=== PATIENT | female | born 1975 | race Caucasian/White ===

== ENCOUNTER 2017-12-23 12:41 | Emergency (ER) | payer BC ==
--- NOTE | 2017-12-23 14:06 | RAD REPORT ---
EXAM DESCRIPTION: RAD - Foot Right 3 View - 12/23/2017 1:52 pm CLINICAL HISTORY: Blunt force trauma to the foot, foot pain, diabetes history COMPARISON: None. FINDINGS: No fracture, dislocation or periosteal reaction. No acute or destructive bone process. Min imal degenerative change to the toes noted. Patient has a moderate size plantar spur. No air or foreign body in the soft tissues. IMPRESSION: No fracture or acute bone finding.
--- NOTE | 2017-12-23 14:09 | EDPHYS ---
Physician Documentation [facility] Name: Ary Bahena Age: 42 yrs Sex: Female : 1975 Arrival Date: 12/23/2017 Time: 12:44 Bed 10 Private MD: ED Physician Jesus Mchugh HPI: 12/23 14:09 This 42 yrs old Female presents to ER via Ambulatory with complaints of Toe kb Injury. 14:09 The patient presents with a contusion, pain, that is acute. The complaints affect the kb right foot. Context: The problem was sustained at home, resulted from sea salt dropped on it, the patient can fully bear weight, the patient is able to ambulate. Onset: The symptoms/episode began/occurred yesterday. Modifying factors: The symptoms are alleviated by nothing, the symptoms are aggravated by nothing. Associated signs and symptoms: The patient has no apparent associated signs or symptoms. Severity of symptoms: At their worst the symptoms were mild, in the emergency department the symptoms are unchanged. The patient has not experienced similar symptoms in the past. The patient has not recently seen a physician. 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 - Social history:: Smoking status: Patient/guardian denies using tobacco. - Ebola Screening: : No symptoms or risks identified at this time. ROS: 14:11 Constitutional: Negative for fever, chills, and weight loss, Cardiovascular: Negative kb for chest pain, palpitations, and edema, Respiratory: Negative for shortness of breath, cough, wheezing, and pleuritic chest pain, Abdomen/GI: Negative for abdominal pain, nausea, vomiting, diarrhea, and constipation, Neuro: Negative for headache, weakness, numbness, tingling, and seizure. 14:11 MS/extremity: Positive for injury or acute deformity, contusion, ecchymosis, pain, of the plantar aspect of right third toe and right third toe. Exam: 14:14 Constitutional: This is a well developed, well nourished patient who is awake, alert, kb and in no acute distress. Head/Face: Normocephalic, atraumatic. Chest/axilla: Normal chest wall appearance and motion. Nontender with no deformity. No lesions are appreciated. Cardiovascular: Regular rate and rhythm with a normal S1 and S2. No gallops, murmurs, or rubs. Normal PMI, no JVD. No pulse deficits. Respiratory: Lungs have equal breath sounds bilaterally, clear to auscultation and percussion. No rales, rhonchi or wheezes noted. No increased work of breathing, no retractions or nasal flaring. Abdomen/GI: Soft, non-tender, with normal bowel sounds. No distension or tympany. No guarding or rebound. No evidence of tenderness throughout. Neuro: Awake and alert, GCS 15, oriented to person, place, time, and situation. Cranial nerves II-XII grossly intact. Motor strength 5/5 in all extremities. Sensory grossly intact. Cerebellar exam normal. Normal gait. 14:14 Musculoskeletal/extremity: Extremities: grossly normal except: noted in the right third toe: contusion, ecchymosis, pain, tenderness, ROM: no acute changes, Circulation is intact in all extremities. Sensation intact. Weight bearing: able to fully bear weight. Vital Signs: 12:49 BP 135 / 82; Pulse 103; Resp 18; Temp 97.9; Pulse Ox 99% on R/A; la1 MDM: 12:50 Patient medically screened. kb 14:07 Data reviewed: vital signs, nurses notes. Data interpreted: Pulse oximetry: on room air kb is 99 %. Interpretation: normal. Counseling: I had a detailed discussion with the patient and/or guardian regarding: the historical points, exam findings, and any diagnostic results supporting the discharge/admit diagnosis, radiology results, the need for outpatient follow up, a orthopedic surgeon, to return to the emergency department if symptoms worsen or persist or if there are any questions or concerns that arise at home. 12/23 12:50 Order name: Foot Right 3 View XRAY; Complete Time: 14:07 kb Administered Medications: No medications were administered Disposition: 14:45 Co-signature as Attending Physician, Jesus Mchugh MD I agree with the assessment and andi plan of care. Disposition: 12/23/17 14:09 Discharged to Home. Impression: Contusion of right lesser toe(s) without damage to nail. - Condition is Stable. - Discharge Instructions: Foot Contusion, [id number]. - Medication Reconciliation Form, Thank You Letter, Antibiotic Education, Prescription Opioid Use form. - Follow up: Private Physician; When: 2 - 3 days; Reason: Recheck today's complaints, Continuance of care, Re-evaluation by your physician. Follow up: Emergency Department; When: As needed; Reason: Worsening of condition. Signatures: Dispatcher [employer] EDMS Paul Harmony, TRAFFIC WORKFORCE REPRESENTATIVE-C JIGNA-Jesus Feldman MD MD cha Attema, Lee RN RN la1 Corrections: (The following items were deleted from the chart) 14:11 14:09 12/23/2017 14:09 Discharged to Home. Impression: Contusion of left lesser toe(s) la1 without damage to nail. Condition is Stable. Forms are Medication Reconciliation Form, Thank You Letter, Antibiotic Education, Prescription Opioid Use. Follow up: Private Physician; When: 2 - 3 days; Reason: Recheck today's complaints, Continuance of care, Re-evaluation by your physician. Follow up: Emergency Department; When: As needed; Reason: Worsening of condition. kb 14:13 14:11 12/23/2017 14:09 Discharged to Home. Impression: Contusion of left lesser toe(s) kb without damage to nail. Condition is Stable. Discharge Instructions: Foot Contusion, [id number]. Forms are Medication Reconciliation Form, Thank You Letter, Antibiotic Education, Prescription Opioid Use. Follow up: Private Physician; When: 2 - 3 days; Reason: Recheck today's complaints, Continuance of care, Re-evaluation by your physician. Follow up: Emergency Department; When: As needed; Reason: Worsening of condition. la1 14:14 14:09 The complaints affect the left foot, kb kb 14:14 14:11 MS/extremity: Positive for injury or acute deformity, contusion, ecchymosis, kb pain, of the plantar aspect of left third toe and left third toe, kb 14:15 14:13 12/23/2017 14:09 Discharged to Home. Impression: Contusion of right lesser toe(s) kb without damage to nail. Condition is Stable. Discharge Instructions: Foot Contusion, [id number]. Forms are Medication Reconciliation Form, Thank You Letter, Antibiotic Education, Prescription Opioid Use. Follow up: Private Physician; When: 2 - 3 days; Reason: Recheck today's complaints, Continuance of care, Re-evaluation by your physician. Follow up: Emergency Department; When: As needed; Reason: Worsening of condition. kb
--- NOTE | 2017-12-23 14:09 | ER ---
Nurse's Notes [facility] Name: Ary Bahena Age: 42 yrs Sex: Female : 1975 Arrival Date: 12/23/2017 Time: 12:44 Bed 10 Private MD: Diagnosis: Contusion of right lesser toe(s) without damage to nail Presentation: 12/23 12:48 Presenting complaint: Patient states: I dropped the sea salt on my toe on my right foot la1 and since I am diabetic I wanted to get it checked out. Transition of care: patient was not received from another setting of care. Onset of symptoms was December 23, 2017. Risk Assessment: Do you want to hurt yourself or someone else? Patient reports no desire to harm self or others. Initial Sepsis Screen: Does the patient meet any 2 criteria? No. Patient's initial sepsis screen is negative. Does the patient have a suspected source of infection? No. Patient's initial sepsis screen is negative. Care prior to arrival: None. 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 - Social history:: Smoking status: Patient/guardian denies using tobacco. - Ebola Screening: : No symptoms or risks identified at this time. Screenin:11 Abuse screen: Denies injuries from another. Nutritional screening: No deficits noted. la1 Tuberculosis screening: No symptoms or risk factors identified. Fall Risk None identified. Assessment: 14:10 General: Appears in no apparent distress. Behavior is calm, cooperative. Pain: Denies la1 pain. Neuro: Level of Consciousness is awake, alert, obeys commands, Oriented to person, place, time, situation. Cardiovascular: Capillary refill < 3 seconds Patient's skin is warm and dry. Respiratory: Airway is patent Respiratory effort is even, unlabored. GI: No signs and/or symptoms were reported involving the gastrointestinal system. : No signs and/or symptoms were reported regarding the genitourinary system. Vital Signs: 12:49 BP 135 / 82; Pulse 103; Resp 18; Temp 97.9; Pulse Ox 99% on R/A; la1 ED Course: 12:44 Patient arrived in ED. tw3 12:49 Triage completed. la1 12:49 Harmony Miller FNP-C is [facility]. kb 12:49 Jesus Mchugh MD is Attending Physician. kb 12:49 Arm band placed on left wrist. la1 12:59 Michaela Smith, RN is Primary Nurse. iw 13:51 X-ray completed. Portable x-ray completed in exam room. Patient tolerated procedure jb2 well. 13:52 Foot Right 3 View XRAY In Process Unspecified. EDMS 14:11 Call light in reach. Side rails up X 1. la1 14:11 No provider procedures requiring assistance completed. Patient did not have IV access la1 during this emergency room visit. Administered Medications: No medications were administered Outcome: 14:09 Discharge ordered by . kb 14:11 Discharged to home ambulatory. la1 14:11 Condition: stable 14:11 Discharge instructions given to patient, Instructed on discharge instructions, follow up and referral plans. medication usage, Demonstrated understanding of instructions, follow-up care, medications. 14:11 Patient left the ED. la1 14:15 Patient left the ED. kb Signatures: Dispatcher [employer] EDCT Harmony Miller FNP-C FNP-Marek Naranjo jb2 Michaela Smith, RN EL iw Luiz Partida RN RN la1 Nina Yañez tw3
== END 2017-12-23 14:15 | disposition home or self-care (01) ==
LOC: ER 12:41
DX: S90.121A Contusion of right lesser toe(s) without damage to nail, initial encounter (principal); W20.8XXA Other cause of strike by thrown, projected or falling object, initial encounter; Y93.89 Activity, other specified; Y92.9 Unspecified place or not applicable; Z88.0 Allergy status to penicillin
CPT/HCPCS: 99283

== ENCOUNTER 2018-07-27 09:02 | Observation (INO) | payer BC ==
--- OUTSIDE RECORDS SUMMARY | 2018-07-27 09:08 | XMS REPORT ---
:1975 [facility] [address] [place] [address] Dr. Baldwin [address] [place] [id number] Care Team Providers Name Role Phone Unavailable Unavailable Unavailable Problems This patient has no known problems. Allergies, Adverse Reactions, Alerts This patient has no known allergies or adverse reactions. Medications This patient has no known medications.
[2018-07-27 09:23] LABS: Absolute Lymphocytes (CBC) 2.1 K/uL (0.7-4.9); Absolute Monocytes 0.7 K/uL (0.1-1.3); Absolute Neutrophil 5.2 K/uL (1.8-8.0); Basophils % 0.7 % (0-1.3); Lymphocytes % 25.7 % (15.3-44.8); MPV 10.9 fL (7.6-11.3); Monocytes % 9.1 % (3.3-12.3); RBC Red Blood Cell Count 4.23 M/uL (3.86-4.86)
[2018-07-27] MEDS ORDERED: TETANUS & DIPHTHERIA TOX,ADULT 0.5 ML VIAL ONE ×2 (09:25→09:31)
[2018-07-27] MEDS ORDERED: LIDOCAINE 1% MPF 5 ML VIAL ONE ×2 (09:25→09:31)
[2018-07-27] MEDS ORDERED: CEFAZOLIN/SWI 1gm 0 GM/0 ML SYR ONE (09:25)
[2018-07-27] MEDS ORDERED: CEFAZOLIN/SWI 1gm 1 GM/10 ML SYR ONE ×2 (09:31→14:25)
[2018-07-27 09:38] LABS: Potassium 4.2 mmol/L (3.5-5.1)
--- NOTE | 2018-07-27 09:46 | RAD REPORT ---
EXAM DESCRIPTION: RAD - Hand Right 2 View - 07/27/2018 9:27 am CLINICAL HISTORY: partial amputation COMPARISON: No comparisons FINDINGS: Comminuted fracture, likely open with a large soft tissue defect, is seen involving the di stal phalanx of the third digit.
--- NOTE | 2018-07-27 10:08 | ER ---
Nurse's Notes [facility] Name: Ary Bahena Age: 42 yrs Sex: Female : 1975 Arrival Date: 07/27/2018 Time: 09:02 Bed 8 Private MD: Diagnosis: open fracture displaced distal phalanx right third finger Presentation: 07/27 09:07 Presenting complaint: Patient states: my finger got slammed in a loading cart at work, tw2 i work at [employer], its my RIGHT middle finger. Transition of care: patient was not received from another setting of care. Onset of symptoms was July 27, 2018. Risk Assessment: Do you want to hurt yourself or someone else? Patient reports no desire to harm self or others. Initial Sepsis Screen: Does the patient meet any 2 criteria? No. Patient's initial sepsis screen is negative. Does the patient have a suspected source of infection? No. Patient's initial sepsis screen is negative. Care prior to arrival: None. 09:07 Method Of Arrival: Ambulatory tw2 09:07 Acuity: MATTHEW 2 tw2 09:07 Mechanism of Injury: Crush injury from being trapped between 2 industrial carts at tw2 work. Trauma event details: Injury occurred in the county of. Triage Assessment: 09:08 General: Appears in no apparent distress. well groomed, Behavior is cooperative, tw2 appropriate for age. Pain: Complains of pain in palmar aspect of distal phalanx of right middle finger. 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 Injury Description: Amputation was sustained less than 30 minutes ago. 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/08/2018 tw2 Trauma Activation: Alert Physician: ED Physician; Name: ; Notified At: ; Arrived At: Physician: General Surgeon; Name: ; Notified At: ; Arrived At: Physician: Radiology; Name: ; Notified At: ; Arrived At: Physician: Respiratory; Name: ; Notified At: ; Arrived At: Physician: Lab; Name: ; Notified At: ; Arrived At: Historical: - Allergies: 09:46 PENICILLINS; tw2 - Home Meds: 09:46 gabapentin 300 mg oral cap 1 cap am \T\ pm [Active]; Novolin 70/30 [place] Sub-Q twice a tw2 day [Active]; trazodone 100 mg oral tab 1 tab nightly [Active]; lisinopril 20 mg Oral tab 1 tab once daily [Active]; aspirin 81 mg Oral chew 1 tab once daily [Active]; naproxen 250 mg Oral tab 1 tab every 6 hours [Active]; metoprolol tartrate 25 mg Oral tab 1 tab once daily [Active]; Multiple Vitamins oral tab [Active]; Vitamin D D3 Oral 50 mcg daily [Active]; atorvastatin 20 mg oral tab 1 tab once daily [Active]; loratadine 10 mg oral tab 1 tab once daily [Active]; - PMHx: 09:46 Diabetes - IDDM; Heart Murmur; PERIPHERAL NEUROPATHY; tw2 - PSHx: 10:05 Tubal ligation; tw2 - Immunization history:: Adult Immunizations. - Social history:: Smoking status: . - Immunization history: Last tetanus immunization: unknown. - Ebola Screening: : Patient denies travel to an Ebola-affected area in the 21 days before illness onset. Screenin:42 Abuse screen: Denies threats or abuse. Nutritional screening: No deficits noted. tw2 Tuberculosis screening: No symptoms or risk factors identified. Fall Risk None identified. Primary Survey: 09:07 Uncontrolled hemorrhage is observed, assessment has been re-ordered to <C> ABC. A: The tw2 patient is alert. Airway: patent. Breathing/Chest: Respiratory pattern: regular, Respiratory effort: spontaneous, unlabored, Breath sounds: clear, bilaterally. Circulation: Skin color: pink, Skin temperature: warm, dry. Disability Alert. Exposure/Environment: There is evidence of uncontrolled external hemorrhage. Provider notified immediately. Methods to control bleeding applied. Obvious injury(ies) are noted at this time: partial amputation noted to distal tip of LEFT middle finger, gauze applied, Provider LUCILLE Gastelum at bedside at this time. 10:02 Reassessment Airway Airway Breathing/Chest Respiratory pattern Regular Respiratory tw2 effort Spontaneous Unlabored Chest inspection Symmetrical Circulation Heart tones Present Disability Alert. Secondary Survey: 09:07 HEENT: No deficits noted. HEENT: Eyes: Other pt wears glasses. Gastrointestinal: No tw2 deficits noted. : No deficits noted. Musculoskeletal: No signs and/or symptoms reported regarding the musculoskeletal system. Injury Description: see trauma charting. Assessment: 09:07 General: Appears in no apparent distress. Behavior is cooperative, appropriate for age. tw2 Pain: Complains of pain in palmar aspect of distal phalanx of right middle finger. Neuro: Level of Consciousness is awake, alert, obeys commands, Oriented to person, place, time, situation. Cardiovascular: Heart tones S1 S2 Patient's skin is warm and dry. Respiratory: Airway is patent Respiratory effort is even, unlabored, Respiratory pattern is regular, symmetrical, Breath sounds are clear bilaterally. GI: No signs and/or symptoms were reported involving the gastrointestinal system. : No signs and/or symptoms were reported regarding the genitourinary system. EENT: No signs and/or symptoms were reported regarding the EENT system. Derm: No signs and/or symptoms reported regarding the dermatologic system. Musculoskeletal: see trauma charting. Injury Description: see trauma charting. 10:00 Reassessment: Patient appears in no apparent distress at this time. No changes from tw2 previously documented assessment. Patient and/or family updated on plan of care and expected duration. Pain level reassessed. Patient is alert, oriented x 3, equal unlabored respirations, skin warm/dry/pink. 10:49 Reassessment: Patient appears in no apparent distress at this time. No changes from tw2 previously documented assessment. Patient and/or family updated on plan of care and expected duration. Pain level reassessed. Patient is alert, oriented x 3, equal unlabored respirations, skin warm/dry/pink. Vital Signs: 09:07 BP 150 / 78; Pulse 99; Resp 18; Temp 98.2(TE); Pulse Ox 99% on R/A; Weight 69.4 kg (R); tw2 Height 5 ft. 3 in. (160.02 cm); Pain 0/10; 09:59 BP 152 / 78; Pulse 84; Resp 17; Pulse Ox 100% on R/A; tw2 10:48 BP 143 / 79; Pulse 80; Resp 17; Pulse Ox 100% on R/A; tw2 09:07 Body Mass Index 27.10 (69.40 kg, 160.02 cm) tw2 [place] Coma Score: 09:07 Eye Response: spontaneous(4). Verbal Response: oriented(5). Motor Response: obeys tw2 commands(6). Total: 15. Trauma Score (Adult): 09:07 Eye Response: spontaneous(1); Verbal Response: oriented(1); Motor Response: obeys tw2 commands(2); Systolic BP: > 89 mm Hg(4); Respiratory Rate: 10 to 29 per min(4); [place] Score: 15; Trauma Score: 12 10:05 Eye Response: spontaneous(1); Verbal Response: oriented(1); Motor Response: obeys hb commands(2); Systolic BP: > 89 mm Hg(4); Respiratory Rate: 10 to 29 per min(4); [place] Score: 15; Trauma Score: 12 ED Course: 09:02 Patient arrived in ED. as 09:05 Nirav Domínguez PA is PHCP. jr8 09:05 Cj Curiel MD is Attending Physician. jr8 09:07 Bed in low position. Call light in reach. lunchroom monitor on. Pulse ox on. NIBP on. tw2 09:07 Patient maintains SpO2 saturation greater than 95% on room air. tw2 09:07 Thermoregulation: warm blanket given to patient. tw2 09:13 Yana Montano, EL is Primary Nurse. tw2 09:15 Triage completed. tw2 09:16 Arm band placed on. tw2 09:22 X-ray completed. Portable x-ray completed in exam room. Patient tolerated procedure sw well. 09:24 Hand Right 2 View In Process Unspecified. EDMS 09:25 Inserted saline lock: 20 gauge in left antecubital area, using aseptic technique. Blood tw2 collected. 10:06 Prakash Artis MD is Hospitalizing Provider. gs 12:57 No provider procedures requiring assistance completed. Patient admitted, IV remains in tw2 place. Administered Medications: 09:22 Drug: Tetanus-Diphtheria Toxoid Adult 0.5 ml {Bottom Wheeler: [place]. Exp: hb 05/10/2020. Lot #: [id number]. } Route: IM; Site: right deltoid; 10:00 Follow up: Response: No adverse reaction hb 09:23 Drug: Ancef 1 grams Route: IVPB; Site: left antecubital; hb 09:25 Follow up: IV Status: Completed infusion; IV Intake: 10ml hb 09:23 Drug: Lidocaine (1 %) 5 mg {Note: by LUCILLE Gastelum.} Route: Infiltration; hb 10:40 Drug: NS 0.9% 1000 ml Route: IV; Rate: 125 ml/hr; Site: left antecubital; hb 12:12 Follow up: Response: No adverse reaction; IV Status: Infusion continued upon admission tw2 10:40 Drug: fentaNYL (PF) 50 mcg Route: IVP; Site: left antecubital; hb 11:40 Follow up: Response: No adverse reaction; Pain is decreased tw2 Intake: 09:07 PO: 0ml; Total: 0ml. tw2 09:25 IV: 10ml; Total: 10ml. hb Outcome: 10:08 Decision to Hospitalize by Provider. gs 11:59 Patient's length of stay in the Emergency Department was greater than 2 hours. tw2 12:57 Patient left the ED. hb 12:57 Admitted to Med/surg accompanied by tech, via wheelchair, room 219. tw2 12:57 Condition: stable 12:57 Instructed on the need for admit. Signatures: Dispatcher [employer] EDAyse Norwood Josh, PA PA jr8 Buffy Pedraza Heather, RN RN Yana Montano RN RN tw2 Cj Curiel MD MD
--- NOTE | 2018-07-27 10:09 | EDPHYS ---
Physician Documentation [facility] Name: Ary Bahena Age: 42 yrs Sex: Female : 1975 Arrival Date: 07/27/2018 Time: 09:02 Bed 8 Private MD: ED Physician Cj Curiel HPI: 07/27 10:29 This 42 yrs old Female presents to ER via Ambulatory with complaints of jr8 Finger Injury. 10:29 Onset: The symptoms/episode began/occurred acutely, today. The patient has not jr8 experienced similar symptoms in the past. The patient has not recently seen a physician. While at work got her finger accidently caught in garbage bin. Near amputation of distal right middle finger present upon arrival . 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 tw2 Historical: - Allergies: 09:46 PENICILLINS; tw2 - Home Meds: 09:46 gabapentin 300 mg oral cap 1 cap am \T\ pm [Active]; Novolin 70/30 Innolet Sub-Q twice a tw2 day [Active]; trazodone 100 mg oral tab 1 tab nightly [Active]; lisinopril 20 mg Oral tab 1 tab once daily [Active]; aspirin 81 mg Oral chew 1 tab once daily [Active]; naproxen 250 mg Oral tab 1 tab every 6 hours [Active]; metoprolol tartrate 25 mg Oral tab 1 tab once daily [Active]; Multiple Vitamins oral tab [Active]; Vitamin D D3 Oral 50 mcg daily [Active]; atorvastatin 20 mg oral tab 1 tab once daily [Active]; loratadine 10 mg oral tab 1 tab once daily [Active]; - PMHx: 09:46 Diabetes - IDDM; Heart Murmur; PERIPHERAL NEUROPATHY; tw2 - PSHx: 10:05 Tubal ligation; tw2 - Immunization history:: Adult Immunizations. - Social history:: Smoking status: . - Immunization history: Last tetanus immunization: unknown. - Ebola Screening: : Patient denies travel to an Ebola-affected area in the 21 days before illness onset. ROS: 10:29 Eyes: Negative for injury, pain, redness, and discharge, ENT: Negative for injury, jr8 pain, and discharge, Neck: Negative for injury, pain, and swelling, Cardiovascular: Negative for chest pain, palpitations, and edema, Respiratory: Negative for shortness of breath, cough, wheezing, and pleuritic chest pain, Abdomen/GI: Negative for abdominal pain, nausea, vomiting, diarrhea, and constipation, Back: Negative for injury and pain, Skin: Negative for injury, rash, and discoloration, Neuro: Negative for headache, weakness, numbness, tingling, and seizure. 10:29 MS/extremity: Positive for injury or acute deformity, laceration, pain, of the right hand. Exam: 10:29 Eyes: Pupils equal round and reactive to light, extra-ocular motions intact. Lids and jr8 lashes normal. Conjunctiva and sclera are non-icteric and not injected. Cornea within normal limits. Periorbital areas with no swelling, redness, or edema. ENT: Nares patent. No nasal discharge, no septal abnormalities noted. Tympanic membranes are normal and external auditory canals are clear. Oropharynx with no redness, swelling, or masses, exudates, or evidence of obstruction, uvula midline. Mucous membranes moist. Neck: Trachea midline, no thyromegaly or masses palpated, and no cervical lymphadenopathy. Supple, full range of motion without nuchal rigidity, or vertebral point tenderness. No Meningismus. Cardiovascular: Regular rate and rhythm with a normal S1 and S2. No gallops, murmurs, or rubs. Normal PMI, no JVD. No pulse deficits. Respiratory: Lungs have equal breath sounds bilaterally, clear to auscultation and percussion. No rales, rhonchi or wheezes noted. No increased work of breathing, no retractions or nasal flaring. Abdomen/GI: Soft, non-tender, with normal bowel sounds. No distension or tympany. No guarding or rebound. No evidence of tenderness throughout. Back: No spinal tenderness. No costovertebral tenderness. Full range of motion. Skin: Warm, dry with normal turgor. Normal color with no rashes, no lesions, and no evidence of cellulitis. Neuro: Awake and alert, GCS 15, oriented to person, place, time, and situation. Cranial nerves II-XII grossly intact. Motor strength 5/5 in all extremities. Sensory grossly intact. Cerebellar exam normal. Normal gait. 10:29 Musculoskeletal/extremity: Extremities: grossly normal except: noted in the distal right middle finger : Near complete amputation of the distal right middle finger just proximal to the nail bed noted. Bleeding controlled. Bone exposed. No other trauma noted , ROM: intact in all extremities, Circulation is intact in all extremities. Sensation intact. Vital Signs: 09:07 BP 150 / 78; Pulse 99; Resp 18; Temp 98.2(TE); Pulse Ox 99% on R/A; Weight 69.4 kg (R); tw2 Height 5 ft. 3 in. (160.02 cm); Pain 0/10; 09:59 BP 152 / 78; Pulse 84; Resp 17; Pulse Ox 100% on R/A; tw2 10:48 BP 143 / 79; Pulse 80; Resp 17; Pulse Ox 100% on R/A; tw2 09:07 Body Mass Index 27.10 (69.40 kg, 160.02 cm) tw2 Parish Coma Score: 09:07 Eye Response: spontaneous(4). Verbal Response: oriented(5). Motor Response: obeys tw2 commands(6). Total: 15. Trauma Score (Adult): 09:07 Eye Response: spontaneous(1); Verbal Response: oriented(1); Motor Response: obeys tw2 commands(2); Systolic BP: > 89 mm Hg(4); Respiratory Rate: 10 to 29 per min(4); Parish Score: 15; Trauma Score: 12 10:05 Eye Response: spontaneous(1); Verbal Response: oriented(1); Motor Response: obeys hb commands(2); Systolic BP: > 89 mm Hg(4); Respiratory Rate: 10 to 29 per min(4); Parish Score: 15; Trauma Score: 12 Procedures: 10:29 Nerve block: (digital) of palmar aspect of proximal phalanx of right middle finger jr8 Medication: Lidocaine 1% without epinephrine Amount: 2 mls were injected, Effect: the patient's symptoms are improved, Set up for procedure. Performed by Nirav ADKINS Patient tolerated well. MDM: 09:05 Patient medically screened. jr8 10:29 Data reviewed: vital signs, nurses notes, lab test result(s), radiologic studies, plain jr8 films. Data interpreted: Pulse oximetry: on room air is 100 %. Interpretation: normal. Counseling: I had a detailed discussion with the patient and/or guardian regarding: the historical points, exam findings, and any diagnostic results supporting the discharge/admit diagnosis, lab results, radiology results, the need for further work-up and treatment in the hospital. ED course: Dr. Parsons consulted and will see and bring patient to OR shortly . 07/27 09:09 Order name: CBC with Diff; Complete Time: 10:03 [facility] 07/27 09:09 Order name: Basic Metabolic Panel; Complete Time: 10:03 [facility] 07/27 09:24 Order name: Hand Right 2 View; Complete Time: 10:03 [facility] 07/27 09:09 Order name: IV; Complete Time: 09:14 [facility] 07/27 10:03 Order name: NPO; Complete Time: 10:06 Administered Medications: 09:22 Drug: Tetanus-Diphtheria Toxoid Adult 0.5 ml {Cloth Shrinker: Tendril. Exp: hb 05/10/2020. Lot #: [id number]. } Route: IM; Site: right deltoid; 10:00 Follow up: Response: No adverse reaction hb 09:23 Drug: Ancef 1 grams Route: IVPB; Site: left antecubital; hb 09:25 Follow up: IV Status: Completed infusion; IV Intake: 10ml hb 09:23 Drug: Lidocaine (1 %) 5 mg {Note: by LUCILLE Gastelum.} Route: Infiltration; hb 10:40 Drug: NS 0.9% 1000 ml Route: IV; Rate: 125 ml/hr; Site: left antecubital; hb 12:12 Follow up: Response: No adverse reaction; IV Status: Infusion continued upon admission tw2 10:40 Drug: fentaNYL (PF) 50 mcg Route: IVP; Site: left antecubital; hb 11:40 Follow up: Response: No adverse reaction; Pain is decreased tw2 Disposition: 07/28 08:26 Co-signature as Attending Physician, Cj Curiel MD. Disposition: 07/27/18 10:08 Hospitalization ordered by Prakash Artis for Observation. Preliminary diagnosis is open fracture displaced distal phalanx right third finger. - Bed requested for Telemetry/MedSurg (observation). - Status is Observation. hb - Condition is Stable. - Problem is new. - Symptoms have improved. UTI on Admission? No Signatures: Dispatcher [employer] [facility] Zainab Cruz RN RN Nirav Ellington PA PA jr8 Baxter, Heather, RN RN hb Yana Montano RN RN tw2 Cj Curiel MD MD gs Corrections: (The following items were deleted from the chart) 07/27 09:23 09:09 Hand Right 3 View+RAD.RAD.BRZ ordered. EDMS EDMS 11:51 10:08 Hospitalization Ordered by Prakash Artis MD for Observation. Preliminary ss diagnosis is open fracture displaced distal phalanx right third finger. Bed requested for Telemetry/MedSurg (observation). Status is Observation. Condition is Stable. Problem is new. Symptoms have improved. UTI on Admission? No. gs 12:57 11:51 07/27/2018 10:08 Hospitalization Ordered by Prakash Artis MD for Observation. Preliminary diagnosis is open fracture displaced distal phalanx right third finger. Bed requested for Telemetry/MedSurg (observation). Status is Observation. Condition is Stable. Problem is new. Symptoms have improved. UTI on Admission? No. ss
--- OUTSIDE RECORDS SUMMARY | 2018-07-27 10:33 | XMS REPORT ---
:1975 [facility] Address [address] [place] [address] Dr. Baldwin [address] [place] [id number] Care Team Providers Name Role Phone Unavailable Unavailable Unavailable Problems This patient has no known problems. Allergies, Adverse Reactions, Alerts This patient has no known allergies or adverse reactions. Medications This patient has no known medications.
[2018-07-27] MEDS ORDERED: NA CHLORIDE 0.9% 1,000 ML ONE ×3 (10:34→14:56)
[2018-07-27] MEDS ORDERED: FENTANYL CITR 100 MCG/2 ML ONE ×2 (10:46→13:41)
[2018-07-27] MEDS ORDERED: PROPOFOL 200 MG/20 ML VIAL IV ONE (13:40)
[2018-07-27] MEDS ORDERED: LIDOCAINE 2% MPF 5 ML VIAL ONE (13:41)
[2018-07-27] MEDS ORDERED: ONDANSETRON 4 MG/2 ML VIAL ONE (13:42)
[2018-07-27] MEDS ORDERED: MIDAZOLAM HCL 2 MG/2 ML INJ ONE (13:45)
[2018-07-27] MEDS ORDERED: EPHEDRINE SULF 50 MG/ML VIAL ONE (14:43)
--- NOTE | 2018-07-28 01:35 | OP ---
Surgeon: Prakash Artis MD Preoperative Diagnosis: amputation of right little finger. Postoperative Diagnosis: amputation of right little finger. Procedure Performed: Debridement of skin, subcutaneous tissue, bone; open reduction internal fixatio n, K-wire arthrodesis, nail bed repair and closure of the lacerations. Anesthesia: General. Procedure In Detail: After satisfactory induction of general anesthesia, the hand was prepped with B etadine scrub and Betadine paint. Dry sterile drapes applied in usual manner. The hand was placed o n a [place] table. A periosteal elevator was used to remove the nail plate and then the wound was ir rigated with Betadine solution. Bone fragments were removed and then the patient had the edges of the wound debrided with forceps and scalpel. The finger tip was viable. A K-wire was intro duced from proximal distal of the distal phalanx fracture fragments and then from distal to proximal arthrodesis of the DIP joint. The patient then underwent a simple closure of wound. This was done w ith 4-0 Prolene simple sutures and nail bed repaired with 6-0 PDS. Nail plate was sewn back proximal ly and distally with 4-0 Prolene. The patient then had drapes applied with Xeroform, 2-inch Antonia, a nd Alumafoam splint holding the PIP and DIP in extension. The patient tolerated the procedure well a nd returned to recovery. SHARON/KIM Voice ID: [id number] Report ID: [id number]
--- NOTE | 2018-07-28 02:08 | HP ---
Date of Admission: 07/27/2018 History Of Present Illness: A 42-year-old, white female, [id number], who crushed her right little finger and nail about 8 a.m. today, comes in the ER with a complete amputation of right little finger tip as given. Past Medical History: History of diabetes, history of thyroid goiter. Social History: Smokes a pack a day. Drinks on alcohol on occasion. Allergies: NO ALLERGIES. Physical Examination: General: She is 5 feet, 157 pounds. Extremities: On examination, she has a laceration over the volar side of the finger with radial side , the laceration at the distal phalanx is intact. The ulnar side is lacerated. Imaging: X-ray shows a comminuted fracture of the distal phalanx. After discussion with family, it was decided to consider amputation versus revascularization and salv age. She understands that the smoking would be adverse to her final results. Impression: Avascular finger tip with crushing needs an amputation. Plan: Debridement, possible amputation, possible revascularization. SHARON/KIM Voice ID: [id number]
--- NOTE | 2018-07-30 08:58 | DS ---
Date of Discharge: 07/27/2018 History: A 42-year-old, white female, right-hand dominant, crushed including up to the right middle finger at 8 a.m. Tetanus given. History of diabetes, history of tubal ligation, and bladder surgery . Smokes a pack a day. Drinks on occasion. She has no allergies. Physical Examination: General: 5 feet 3 inches, 157 pounds. She has a laceration on the volar surface at the DIP joint wi th comminuted fracture of the distal phalanx. The ulnar side is lacerated, the radial side is intact mostly. She was taken to surgery, at which time the finger was debrided. Arthrodesis and ORIF done and then repaired and then closed. The finger was pink. She is going to be discharged to home to return the following Monday at 9 o'clock. The patient was warned not to smoke, but is addicted to cigarettes. This may lead to eventual amputation, and she understands that. We will see her on Monday, 9 o'clock , at the [place] office. SHARON/KIM Voice ID: [id number] Report ID: [id number]
== END 2018-07-27 17:43 | disposition home or self-care (01) ==
LOC: ER 09:02 → OR 10:19 → 2ND 12:04
PROVIDERS: ADMIT Specialist; ATTEND Specialist
PROC: 0HQQXZZ Repair Finger Nail, External Approach (ICD-10-PCS; 2018-07-27)
PROC: 3E0T3BZ Introduction of Anesthetic Agent into Peripheral Nerves and Plexi, Percutaneous Approach (ICD-10-PCS; 2018-07-27)
PROC: 0RGW04Z Fusion of Right Finger Phalangeal Joint with Internal Fixation Device, Open Approach (ICD-10-PCS; principal; 2018-07-27 13:15)
DX: S62.636B Displaced fracture of distal phalanx of right little finger, initial encounter for open fracture (principal); W23.1XXA Caught, crushed, jammed, or pinched between stationary objects, initial encounter; Y99.0 Civilian activity done for income or pay; E11.40 Type 2 diabetes mellitus with diabetic neuropathy, unspecified; F17.210 Nicotine dependence, cigarettes, uncomplicated; Z23 Encounter for immunization; Z79.4 Long term (current) use of insulin; Z79.82 Long term (current) use of aspirin; Z79.1 Long term (current) use of non-steroidal anti-inflammatories (NSAID); Z79.899 Other long term (current) drug therapy
CPT/HCPCS: 36415; 64450; 80048; 82962; 85025; 90471; 90714; 96361; 96374; 96375; 99285; G0378; J0690; J2250; J2405; J2704; J3010; J7030

== ENCOUNTER 2019-01-31 15:31 | Emergency (ER) | payer BC ==
--- OUTSIDE RECORDS SUMMARY | 2019-01-31 15:34 | XMS REPORT | Summary of Care ---
:1975 Author Organization [facility] [employer] Address [address] [place] [id number] Care Team Providers Name Role Phone Felipe Irene MD Primary Care Provider Reason for Visit Reason Comments New Patient Left Arm/Elbow Pain Encounter Details Date Type Department Care Team Description 10/24/2018 Office Visit [facility] Orthopaedic FernandezCarlos S, Lateral epicondylitis, Surgery- [place] PAC left elbow (Primary [address] [place] [address] [place], [place] [phone] Allergies Active Allergy Reactions Severity Noted Date Comments Bee Sting / Venom Anaphylaxis 09/16/2015 Penicillins Rash 02/27/2015 documented as of this encounter (statuses as of 10/24/2018) Medications Medication Sig Dispensed Refills Start Date End Date Status insulin regular human inject under the 0 Active (HUMULIN R) 100 skin. unit/mL Indications: injectionIndications: sliding scale sliding scale loratadine (CLARITIN) Take 10 mg by 0 Active 10 mg tablet mouth daily. aspirin 81 mg chewable Take 1 tablet by 30 tablet 5 10/29/2016 Active tablet mouth daily. lisinopril 20 mg Take 1 tablet by 30 tablet 5 04/19/2017 Active tablet mouth daily. TRAZODONE 100 mg TAKE ONE TABLET 30 tablet 4 10/31/2017 Active tablet BY MOUTH EVERY NIGHT AT BEDTIME Cholecalciferol, Take by mouth. 0 Active Vitamin D3, (VITAMIN D3) 5,000 unit tablet naproxen sodium 220 mg Take by mouth. 0 Active capsule MULTIVITAMIN 12 IV Inject 0 Active intravenously. GABAPENTIN 300 mg TAKE ONE CAPSULE 90 capsule 4 01/02/2018 Active capsule BY MOUTH THREE TIMES A DAY metoprolol succinate Take 1 tablet by 90 tablet 3 08/08/2018 Active XL 25 mg 24 hr mouth daily. tabletIndications: Dizziness and giddiness atorvastatin 20 mg TAKE ONE TABLET 30 tablet 0 08/22/2018 Active tablet BY MOUTH EVERY EVENING atorvastatin 20 mg TAKE ONE TABLET 30 tablet 0 10/16/2018 Active tablet BY MOUTH EVERY EVENING documented as of this encounter (statuses as of 10/24/2018) Active Problems Problem Noted Date Hydradenitis 04/05/2017 Elevated BP 04/10/2016 Vaginal discharge 04/10/2016 Agitation 04/10/2016 Labial lesion 04/10/2016 Type 1 diabetes mellitus with diabetic neuropathy 04/10/2016 Type 1 diabetes mellitus 08/24/2015 Essential hypertension 08/24/2015 Anxiety 08/24/2015 documented as of this encounter (statuses as of 10/24/2018) Immunizations Name Administration Dates Next Due Influenza Virus Vaccine Quad IM 3+ YRS 12/25/2017 Pneumococcal 13 Conjugate, PCV13 (Prevnar 13) 02/16/2017 Td 07/14/2015 Tdap 07/27/2018 documented as of this encounter Social History Tobacco Use Types Packs/Day Years Used Date Current Every Day Smoker Cigarettes 1 20 Smokeless Tobacco: Never Used Alcohol Use Drinks/Week oz/Week Comments No Sex Assigned at Date Recorded Not on file Job Start Date Occupation Industry Not on file Not on file Not on file Travel History Travel Start Travel End No recent travel history available. documented as of this encounter Last Filed Vital Signs Vital Sign Reading Time Taken Comments Blood Pressure 132/77 10/24/2018 9:35 AM CDT Pulse 88 10/24/2018 9:35 AM CDT Temperature - - Respiratory Rate - - Oxygen Saturation - - Inhaled Oxygen Concentration - - Weight 68.5 kg (151 lb) 10/24/2018 9:35 AM CDT Height 160 cm (5' 3") 10/24/2018 9:35 AM CDT Body Mass Index 26.75 10/24/2018 9:35 AM CDT documented in this encounter Progress Notes Carlos Fernandez, PAC - 10/24/2018 9:30 AM CDT Cc: Chief Complaint Patient presents with New Patient Left Arm/Elbow Pain Patient had a fall approx 3 weeks ago when she tripped over her dog at home and has had pain in her shoulder. Left elbow was onset 2 weeks ago when she returned to work. Stating it began when she returned but is not work related. Petra Jones 10/24/2018 9:43 AM Ary Bahena is a 43 year old female. For left elbow pain onset 10/11/2018 when she returned to work he was out for 2 months after a crush amputation of her distal right middle finger treated by Dr. Artis. Allergies Ary is allergic to bee sting / venom and pcn [penicillins]. Medications Outpatient Medications Prior to Visit Medication Sig Dispense Refill atorvastatin 20 mg tablet TAKE ONE TABLET BY MOUTH EVERY EVENING 30 tablet 0 atorvastatin 20 mg tablet TAKE ONE TABLET BY MOUTH EVERY EVENING 30 tablet 0 metoprolol succinate XL 25 mg 24 hr tablet Take 1 tablet by mouth daily. 90 tablet 3 GABAPENTIN 300 mg capsule TAKE ONE CAPSULE BY MOUTH THREE TIMES A DAY 90 capsule 4 Cholecalciferol, Vitamin D3, (VITAMIN D3) 5,000 unit tablet Take by mouth. MULTIVITAMIN 12 IV Inject intravenously. naproxen sodium 220 mg capsule Take by mouth. TRAZODONE 100 mg tablet TAKE ONE TABLET BY MOUTH EVERY NIGHT AT BEDTIME 30 tablet 4 lisinopril 20 mg tablet Take 1 tablet by mouth daily. 30 tablet 5 aspirin 81 mg chewable tablet Take 1 tablet by mouth daily. 30 tablet 5 loratadine (CLARITIN) 10 mg tablet Take 10 mg by mouth daily. insulin regular human (HUMULIN R) 100 unit/mL injection inject under the skin. Indications: sliding scale No facility-administered medications prior to visit. Histories Past Medical History: Diagnosis Date Anxiety Riggs's palsy Depression Diabetes mellitus Heart murmur Hypertension Past Surgical History: Procedure Laterality Date BREAST LUMPECTOMY DRAINAGE, ABSCESS ENDOSCOPIC CARPAL TUNNEL RELEASE EYE SURGERY TUBAL LIGATION Social History Socioeconomic History Marital status: Spouse name: Not on file Number of children: Not on file Years of education: Not on file Highest education level: Not on file Occupational History Not on file Social Needs Financial resource strain: Not on file Food insecurity: Worry: Not on file Inability: Not on file Transportation needs: Medical: Not on file Non-medical: Not on file Tobacco Use Smoking status: Current Every Day Smoker Packs/day: 1.00 Years: 20.00 Pack years: 20.00 Types: Cigarettes Smokeless tobacco: Never Used Substance and Sexual Activity Alcohol use: No Drug use: No Sexual activity: Yes Partners: Male control/protection: Surgical Lifestyle Physical activity: Days per week: Not on file Minutes per session: Not on file Stress: Not on file Relationships Social connections: Talks on phone: Not on file Gets together: Not on file Attends advent service: Not on file Active member of club or organization: Not on file Attends meetings of clubs or organizations: Not on file Relationship status: Not on file Intimate partner violence: Fear of current or ex partner: Not on file Emotionally abused: Not on file Physically abused: Not on file Forced sexual activity: Not on file Other Topics Concern Not on file 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 HENT: Negative. Eyes: Negative. Respiratory: Negative. Breasts: Negative. Cardiovascular: Positive for chest pain. Gastrointestinal: Negative. Genitourinary: Negative. Skin: Negative. Neurological: Negative. Psychiatric/Behavioral: Negative. Endocrine: Endocrine negative Vital Signs BP 132/77 | Pulse 88 | Ht 63" (160 cm) | Wt 68.5 kg (151 lb) | BMI 26.75 kg/ m Physical Exam Musculoskeletal: Physical Exam Constitutional: oriented to person, place, and time. appears well-developed and well-nourished. HENT: Head: Normocephalic and atraumatic. Right Ear: External ear normal. Left Ear: External ear normal. Eyes: Conjunctivae are normal. Neck: Normal range of motion. No strabismus Neck supple. Cardiovascular: Normal rate and regular rhythm. Pulmonary/Chest: Normal respiratory rate equal chest rise and fall in no apparent distress Abdominal: Abdomen nondistended nontender Neurological: alert and oriented to person, place, and time. No asymmetry Skin: Skin is warm and dry. Psychiatric: normal mood and affect. behavior is normal. Judgment and thought content normal. Nursing note and vitals reviewed. Point tenderness to palpation of the left lateral epicondyles with only mild exacerbation with active resisted supination no increased pain with active resisted wrist dorsiflexion she feels like this is improving. Assessment/Plan 1. Lateral epicondylitis, left elbow Tennis elbow is an inflammation of the tendons that join the forearm muscles on the outside of the elbow. The forearm muscles and tendons become damaged from overuse repeating the same motions again and again. This leads to pain and tenderness on the outside of the elbow. Do not lift anything at all with the right/left hand including a coffee cup until the exercise program is graduated Start with the Halie method of stretching with elbow straight and shoulder extended pull the wrist toward the shoulder while turning the hand out. Perform this exercise for 20 seconds at a time and doit 6-8 times. Do as many repetitions as you can without pain until you get to a repetitions, then add the next step Wrist curls and wrist extensions with that. 2-1/2 pound weight perform sets of 10. do as many sets of 10, is a candidate you can get to 6 or 8 sets of 10. Continue previous steps in this case. Stretching and stretching without pain at stress ball squeeze the stress ball in sets of 10. There is many setsof 10, is you can until he can do 6-8 sets of 10. Continue the stretching and curls. Once you can do all of these exercises pain-free. Then you can gradually begin to lift light things and build up from there. documented in this encounter Plan of Treatment Date Type Specialty Care Team Description 08/12/2019 Office Visit Cardiology Josué Chung MD [address] [place] [address] [id number] Health Maintenance Due Date Last Done Comments EYE EXAM 1984 PAP SMEAR 06/02/2006 06/03/2003 MAMMOGRAM 11/07/2015 11/06/2014 URINE MICROALBUMIN 01/26/2017 01/27/2016, 09/18/2003, 03/24/2003 PNEUMOCOCCAL 0-64 YEARS COMBINED 04/13/2017 02/16/2017 SERIES (1 of 1 - PPSV23) LDL-C 10/29/2017 10/29/2016, 01/27/2016, 09/18/2003, Additional history exists INFLUENZA VACCINE 11/11/2018 12/25/2017 CREATININE (SERUM) 11/23/2018 11/23/2017, 02/08/2017, 12/31/2016, Additional history exists HgA1C 02/28/2019 08/29/2018, 10/29/2016, 01/27/2016, Additional history exists FOOT EXAM 08/30/2019 08/29/2018 DTaP,Tdap,and Td Vaccines (2 - Td) 07/27/2028 07/27/2018, 07/14/2015 documented as of this encounter Results Not on filedocumented in this encounter Visit Diagnoses Diagnosis Lateral epicondylitis, left elbow - Primary documented in this encounter Insurance Payer Benefit Plan Subscriber ID Effective Dates Phone Address Type / Group [facility] [id number] 2016-[place] [phone] [address] PPO/POS [place] - OUT OF t [id number] [place] [address] [phone] [id number] (Work) documented as of this encounter
--- OUTSIDE RECORDS SUMMARY | 2019-01-31 15:34 | XMS REPORT | Summary of Care ---
:1975 Author Organization [facility] [employer] Address [address] [place] [id number] Care Team Providers Name Role Phone Marizol Gonzales GABRIELA Primary Care Provider Reason for Referral Radiology Services (Routine) Status Reason Specialty Diagnoses / Referred By Referred To Procedures Contact Contact New Request Diagnostic Diagnoses Well woman exam [place], Radiology Procedures BI SCREENING MAMMOGRAM BILATERAL CESIA [facility] [address] [place] [address] Reason for Visit Reason Comments Well Woman Exam Encounter Details Date Type Department Care Team Description 11/15/2018 Office Visit [facility]- Marizol Gonzales Well woman exam (Primary Dx); Nghia Polanco GABRIELA History of tubal ligation; [address] Dysuria; [place], [place] UTI symptoms; [id number] [place] [address] Essential hypertension; [phone] Type 1 diabetes mellitus with diabetic neuropathy Allergies Active Allergy Reactions Severity Noted Date Comments Bee Sting / Venom Anaphylaxis 09/16/2015 Penicillins Rash 02/27/2015 documented as of this encounter (statuses as of 11/16/2018) Medications Medication Sig Dispensed Refills Start Date [...] 08/22/2018 Active tablet BY MOUTH EVERY EVENING ATORVASTATIN 20 mg TAKE ONE TABLET 30 tablet 0 11/13/2018 Active tablet BY MOUTH EVERY EVENING documented as of this encounter (statuses as of 11/16/2018) Active Problems Problem Noted Date History of tubal ligation 11/15/2018 Hydradenitis 04/05/2017 Elevated BP 04/10/2016 Vaginal discharge 04/10/2016 Agitation 04/10/2016 Labial lesion 04/10/2016 Type 1 diabetes mellitus with diabetic neuropathy 04/10/2016 Type 1 diabetes mellitus 08/24/2015 Essential hypertension 08/24/2015 Anxiety 08/24/2015 documented as of this encounter (statuses as of 11/16/2018) Immunizations Name Administration Dates Next Due Influenza Virus Vaccine Quad IM 3+ YRS 12/25/2017 Pneumococcal 13 Conjugate, PCV13 (Prevnar 13) 02/16/2017 Td 07/14/2015 Tdap 07/27/2018 documented as of this encounter Social History Tobacco Use Types Packs/Day Years Used Date Current Every Day Smoker Cigarettes 0.1 20 Started: 11/15/1998 Smokeless Tobacco: Never Used Tobacco Cessation: Ready to Quit: Yes; Counseling Given: Yes Alcohol Use Drinks/Week oz/Week Comments No Sex Assigned at Date Recorded Not on file Job Start Date Occupation Industry Not on file Not on file Not on file Travel History Travel Start Travel End No recent travel history available. documented as of this encounter Last Filed Vital Signs Vital Sign Reading Time Taken Comments Blood Pressure 109/70 11/15/2018 3:55 PM CDT Pulse 75 11/15/2018 3:55 PM CDT Temperature 36.6 C (97.9 F) 11/15/2018 3:55 PM CDT Respiratory Rate 16 11/15/2018 3:55 PM CDT Oxygen Saturation - - Inhaled Oxygen Concentration - - Weight 67.7 kg (149 lb 5 oz) 11/15/2018 3:55 PM CDT Height 160 cm (5' 3") 11/15/2018 3:55 PM CDT Body Mass Index 26.45 11/15/2018 3:55 PM CDT documented in this encounter Patient Instructions Patient InstructionsHiren Malin RN - 11/15/2018 3:45 PM CDT Understanding STDs When it comes to sex, nothing is risk-free. Any sexual contact with the penis, vagina, anus, or mouth can spread a sexually transmitted disease (STD). The only sure way to prevent STDs is abstinence (not having sex). But there are ways to make sex safer. Use a latex condom each time you have sex. And choose your partner wisely. Use condoms for safer sex If you have sex, latex condoms provide the best protection against STDs. Latex condoms stop the exchange of body fluids that carry certain STDs. They also limit contact with affected skin. Be aware though, a condom doesnt cover all skin. So, affected skin that is not covered can still transfer disease. But you re safer with a condom than without one. Use a condom even if you use other control. While control methods like the pill or IUD help prevent , they do not protect against STDs. Choose the right condom Condoms made of latex prevent disease best. If youre allergic to latex, use polyurethane condoms instead. Male condoms fit over the penis. Female condoms line the vagina. Before buying a condom, read the label to be sure it prevents disease. Some novelty condoms dont. The right lubricant helps Buy lubricated condoms or use lubricant. This provides greater comfort and reduces the risk of condom breakage. Use only water-based lubricants. Dont use oil, lotion, or petroleum jelly. They can weaken the condom, causing breakage. Also, you may want to choose lubricants without nonoxynol-9. Its now known that this spermicide does not prevent disease and may cause irritation. Use condoms correctly For condoms to work, they must be used the right way. Keep these tips in mind: Use a new latex condom each time you have sex. Slip the condom on the penis before any contact ismade. When ready to withdraw, hold the rim of the condom as the penis pulls out. This prevents the condom from slipping off. Check the expiration date before using a condom. Dont store condoms in places that can get hot, such as a car or a wallet that is carried in a back pocket. Get to know your partner Safer sex is a process. It involves getting to know your partner and making informed choices. Ask each other how many partners you have had in the past, and how many you have now. Find out if either ofyou has an STD. If you decide to have sex, use a condom each time. Dont stop using condoms unlessyoure sure neither of you has other partners and youve both been tested to confirm you donthave STDs. Then stay free of disease by having sex only with each other (monogamy). Keep your cool Dont let alcohol or drugs cloud your judgment. They could lead you to have sex with someone you wouldnt have chosen if you were sober. Or, you might forget to use a condom. If you do plan to havesex, keep a latex condom with you. Dont wait until youre in the heat of passion to try to findone. Consider abstinence The only way to be sure you wont get an STD is to abstain from sex. Abstinence is a choice that many people make at some point in their lives. Maybe you want to wait until you are sure youre ready before you have sex. Maybe youd like a break from the responsibilities of sex for a while. Or maybe you just want to know your partner better before taking the next step. Abstinence is a choice youcan make now to protect your future. Date Last Reviewed: 02/11/201619993317-4729 [employer] [address] [place] [address], [place] [address]. All rights reserved. This information is not intended as a substitute for professional medical care. Always follow your healthcare professional's instructions. Prevention Guidelines,Women Ages 40 to 49 Screening tests and vaccines are an important part of managing your health. A screening test is doneto find possible disorders or diseases in people who don' t have any symptoms. The goal is to find a disease early so lifestyle changes can be made and you can be watched more closely to reduce the riskof disease, or to detect it early enough to treat it most effectively. Screening tests are not considered diagnostic, but are used to determine if more testing is needed. Health counseling is essential, too. Below are guidelines for these, for women ages 40 to 49. Talk with your healthcare provider to make sure youre up-to- date on what you need. Screening Who needs it How often Type 2 diabetes or prediabetes All women beginning at age 45 and women without symptoms at any age who are overweight or obese and have 1 or more additional risk factors for diabetes At least every 3 years1 Type 2 diabetes or prediabetes All women diagnosed with gestational diabetes Lifelong testing every 3 years Type 2 diabetes All women with prediabetes Every year Alcohol misuse All women in this age group At routine exams Blood pressure All women in this age group Yearly checkup if your blood pressure is normal Normal blood pressure is less than 120/80 mm Hg If your blood pressure reading is higher than normal, follow the advice of your healthcare provider Breast cancer All women at average risk in this age group Screening with a mammogram can start at age 40.2 Talk with your healthcare provider to help you decide when to start screening. At age 45 startyearly mammograms.3 Cervical cancer All women in this age group, except women who have had a complete hysterectomy Pap test every 3 yearsor Pap test plushuman papilloma virus (HPV)test every 5 years Chlamydia Women at increased risk for infection At routine exams if you're at risk or have symptoms Depression All women in this age group At routine exams Gonorrhea Sexually active women at increased risk for infection At routine exams Hepatitis C Anyone at increased risk; 1 time for those born between 1945 and 1965 At routine exams High cholesterol or triglycerides All women ages 45 and older who are at risk for coronary artery disease; younger women, talk with your healthcare provider At least every 5 years HIV All women At routine exams. Those with risk factors for HIV should be tested at least annually. Obesity All women in this age group At routine exams Syphilis Women at increased risk for infectiontalk with your healthcare provider At routine exams Tuberculosis Women at increased risk for infectiontalk with your healthcare provider Ask your healthcare provider Vision All women in this age group Complete exam at age 40 and eye exams every 2 to 4 years. If you have a chronic disease, ask your healthcare provider how often you should have your eyes examined.4 Vaccine Who needs it How often Chickenpox (varicella) All women in this age group who have no record of this infection or vaccine 2doses; the second dose should be given at least 4 weeks after the first dose Hepatitis A Women at increased risk for infectiontalk with your healthcare provider 2 doses given6 months apart Hepatitis B Women at increased risk for infectiontalk with your healthcare provider 3 doses over 6 months; second dose should be given 1 month after the first dose; the third dose should be given atleast 2 months after the second dose and at least 4 months after the first dose Haemophilus influenzaeType B (HIB) Women at increased risk 1 to 3 doses Influenza (flu) All women in this age group Once a year Measles, mumps, rubella (MMR) All women in this age group who have no record of these infections or vaccines 1 or 2 doses Meningococcal Women at increased risk for infectiontalk with your healthcare provider 1 or more doses Pneumococcal conjugate vaccine (PCV13)and pneumococcal polysaccharide vaccine(PPSV23) Women at increased risk for infectiontalk with your healthcare provider 1 or 2 doses Tetanus/diphtheria/pertussis (Td/Tdap) booster All women in this age group A one -time dose of Tdap instead of a Td booster after age 18, then Td every 10 years Counseling Who needs it How often BRCA gene mutation testing for breast and ovarian cancer susceptibility Women with increased risk for having gene mutation When your risk is known Breast cancer and chemoprevention Women at high risk for breast cancer When your risk is known Diet and exercise Women who are overweight or obese When diagnosed, and then at routine exams Domestic violence Women at the age in which they are able to have children At routine exams Sexually transmitted infection prevention Women at increased risk for infection talk with your healthcare provider At routine exams Use of tobacco and the health effects it can cause All women in this age group Every exam 1American Diabetes Association 2American College of Obstetricians and Gynecologists 3American Cancer Society 4American Academy of Ophthalmology Date Last Reviewed: 01/11/201719991968-0781 [employer] [address] [place] [address]. All rights reserved. This information is not intended as a substitute for professional medical care. Always follow your healthcare professional's instructions. Understanding HIV and AIDS If you know how HIV (human immunodeficiency virus) can get into your body and what happens once its there, youll be better prepared to protect yourself or others against this virus. A person withHIV can look and feel perfectly healthy. But that person can give HIV to others as soon as he or sheis infected with the virus. Note: Having unsafe or unprotected sex or sharing needles put you at risk for HIV. Talk with your healthcare provider about ways to protect yourself or a loved one from getting HIV. How HIV enters the body HIV is carried in semen, vaginal fluid, blood, and breast milk. During sex, HIV can enter the body through the fragile tissue that lines the vagina, penis, anus,and mouth. During drug use, tattooing, or body piercing, the virus can enter the bloodstream through a shared needle. A mother who has HIV can infect her child during childbirth and through . How HIV infection progresses After HIV enters the body, it attacks the immune system in stages. A person with HIV can infect others once the virus enters the bloodstream. HIV with no symptoms. A person with HIV may have no symptoms for years. A positive blood test for HIV antibodies 6 weeks to 6 months after HIV enters the body may be the only sign of infection. HIV with symptoms.Some people develop an illness similar to mononucleosis (or "mono") 2 to 4 weeksafter the virus enters the body. Symptoms may include swollen lymph glands, chills, fever, night sweats, weakness, weight loss, skin rashes, mouth ulcers, or sore throat. Symptoms may be mild at first and then slowly go away. In a very few individuals, symptoms may get progressively worse and last forlonger and longer periods. AIDS. AIDS is the last stage of HIV infection. Diseases and cancers begin to overcome the body. It is these diseases, not the virus itself, that cause . HIV may also attack the brain and nervous system, causing seizures and loss of memory and body movement. Date Last Reviewed: 01/12/201619999506-2403 [employer] [address] [place] [address], [place] [address]. All rights reserved. This information is not intended as a substitute for professional medical care. Always follow your healthcare professional's instructions. Clinical Breast Exam Many health organizations recommend a yearly clinical breast exam. This exam may be done by a smudger, family healthcare provider, nurse practitioner, nurse trash hauler, or specially trained nurse. Yearly breast exams help tomake surethat breast conditions are found early. Your healthcare providers role A healthcare professional knows the tests and follow-up care needed if a problem is found. Your clinical exam is also a great time to ask questions about breast self-exams. You can find out if yourechecking your breasts in the best way. Or you may want to ask how , breast implants, or breast reduction surgery affect the way you should check your breasts. Diagnostic tests If a clinical exam reveals a breast change, you may have other tests to find out more. These tests may include: Mammography. A low-dose X-ray of your breast tissue. Ultrasound. An imaging test that uses sound waves to create images of your breast. Biopsy. A small amount of breast tissue is removed by needle or by a cut ( incision). The tissue is then checked under a microscope. Guidelines for having clinical breast exams The [place] [employer]nec[employer] recommends that starting at age 29, you should have a clinical breast exam every 1 to 3 years. After age 40, have a clinical breast exam each year. If youre at higher risk for breast cancer, you may need exams more often. Risk factors for breast cancer may include: Being over 50 or postmenopausal Having a family history of breast cancer Having the BRCA1 or BRCA2 gene mutation or certain other gene mutations Having more menstrual periods due to starting menstruation early(before age 12) or having a late menopause (after age 55) Having no pregnancies Having a first after age 30 Being obese Having a history of radiation treatment to your chest area Exposure to MALIK during your mother's Not being active Drinking too much alcohol Having dense breast tissue Taking hormone therapy after menopause Other health organizations have different recommendations. Talk with your healthcare provider about what is best for you. Date Last Reviewed: 10/11/201619996880-7749 [employer] [address] [place] [address]. All rights reserved. This information is not intended as a substitute for professional medical care. Always follow your healthcare professional's instructions. Breast Health: Breast Self-Awareness What is breast self-awareness? Breast self-awareness is knowing how your breasts normally look and feel. Your breasts change as yougo through different stages of your life. So its important to learn what is normal for your breasts. Breast self-awareness helps you notice any changes in your breasts right away. Report any changesto your healthcare provider. Why is breast self-awareness important? Many experts now say that women should focus on breast self-awareness instead of doing a breast self-examination (BSE). These experts include the [place] [employer], the U.S. Preventive Services Task Force, and the [place] [employer]etricians and Gynecologists. Some experts even advise notteaching women to do a BSE. Thats because research hasnt shown a clear benefit to doing BSEs. Breast self-awareness is different than a BSE. Breast self-awareness isnt about following a certain method and schedule. Its about knowing what's normal for your breasts. That way you can notice even small changes right away. If you see any changes, report them to your healthcare provider. Changes to look for Call your healthcare provider if you find any changes in your breasts that concern you. These changes may include: A lump Nipple discharge other than breastmilk, especially a bloody discharge Swelling A change in size or shape Skin irritation, such as redness, thickening, or dimpling of the skin Swollen lymph nodes in the armpit Nipple problems, such as pain or redness If you find a lump Contact your provider if you find lumpiness in one breast, feel something different in the tissue, or feel a definite lump. Sometimes lumpiness may be due to menstrual changes. But there may be reason for concern. Your provider may want to see you right away if you have: Nipple discharge that is bloody Skin changes on your breast, such as dimpling or puckering Its normal to be upset if you find a lump. But its important to contact your provider right away. Remember that most breast lumps are benign. This means they are not cancer. Date Last Reviewed: 10/11/201619990981-0254 [employer] [address] [place] [address], [place] [address]. All rights reserved. This information is not intended as a substitute for professional medical care. Always follow your healthcare professional's instructions. Understanding USDA MyPlate The USDA (U.S. Department of Agriculture) has guidelines to help you make healthy food choices. These are called MyPlate. MyPlate shows the food groups that make up healthy meals using the image of a place setting. Before you eat, think about the healthiest choices for what to put onto your plate or into your cup or bowl. To learn more about building a healthy plate, visit www.choosemyplate.gov. The food groups Fruits. Any fruit or 100% fruit juice counts as part of the Fruit Group. Fruits may be fresh, canned, frozen, or dried, and may be whole, cut-up, or pureed. Make half your plate fruits and vegetables. Vegetables. Any vegetable or 100% vegetable juice counts as a member of the Vegetable Group. Vegetables may be fresh, frozen, canned, or dried. They can be served raw or cooked and may be whole, cut-up, or mashed. Make half your plate fruits and vegetables. Grains. All foods made from grains are part of the Grains Group. These include wheat, rice, oats,cornmeal, and barley such as bread, pasta, oatmeal, cereal, tortillas, and grits. Grains should be no more than a quarter of your plate. At least half of your grains should be whole grains. Protein. This group includes meat, poultry, seafood, beans and peas, eggs, processed soy products(like tofu), nuts (including nut butters), and seeds. Make protein choices no more than a quarter ofyour plate. Meat and poultry choices should be lean or low fat. Dairy. All fluid milk products and foods made from milk that contain calcium , like yogurt and cheese, are part of the Dairy Group. (Foods that have little calcium, such as cream, butter, and cream cheese, are not part of the group.) Most dairy choices should be low-fat or fat-free. Oils. These are fats that are liquid at room temperature. They include canola , corn, olive, soybean, and sunflower oil. Foods that are mainly oil include mayonnaise, certain salad dressings, and soft margarines. You should have only 5 to 7 teaspoons of oils a day. You probably already get this muchfrom the food you eat. Date Last Reviewed: 10/11/201619992536-2411 [employer] [address] [place] [address], [place] [address]. All rights reserved. This information is not intended as a substitute for professional medical care. Always follow your healthcare professional's instructions. Eating Heart-Healthy Foods Eating has a big impact on your heart health. In fact, eating healthier can improve several of your heart risks at once. For instance, it helps you manage weight, cholesterol, and blood pressure. Here are ideas to help you make heart- healthy changes without giving up allthe foods and flavors you love. Getting started Talk with your healthcare provider about eating plans, such as the DASH or Mediterranean diet. You may also be referred to a dietitian. Change a few things at a time. Give yourself time to get used to a few eating changes before adding more. Work to create a tasty, healthy eating plan that you can stick to for the rest of your life. Goals for healthy eating Below are some tips to improve your eating habits: Limit saturated fats and trans fats. Saturated fats raise your levels of cholesterol, so keep these fats to a minimum. They are found in foods such as fatty meats, whole milk, cheese, and palm and coconut oils. Avoid trans fats because they lower good cholesterol as well as raise bad cholesterol. Trans fats are most often found in processed foods. Reduce sodium (salt) intake. Eating too much salt may increase your blood pressure. Limit your sodium intake to 2,300 milligrams (mg) per day(the amount in 1 teaspoon of salt), or less if your healthcare provider recommends it. Dining out less often and eating fewer processed foods are two great ways to decrease the amount of salt you consume. Managing calories. A calorie is a unit of energy. Your body stevens calories for fuel, but if you eat more calories than your body stevens, the extras are stored as fat. Your healthcare provider can help you create a diet plan to manage your calories. This will likely include eating healthier foods as well as exercising regularly. To help you track your progress, keep a diary to record what you eat and how often you exercise. Choose the right foods Aim to make these foods glenroy of your diet. If you have diabetes, you may have different recommendations than what is listed here: Fruits and vegetables provide plenty of nutrients without a lot of calories. At meals, fill half your plate with these foods. Split the other half of your plate between whole grains and lean protein. Whole grains are high in fiber and rich in vitamins and nutrients. Good choices include whole-wheat bread, pasta, and brown rice. Lean proteins give you nutrition with less fat. Good choices include fish, skinless chicken, and beans. Low-fat or nonfat dairy provides nutrients without a lot of fat. Try low-fat or nonfat milk, cheese, or yogurt. Healthy fats can be good for you in small amounts. These are unsaturated fats , such as olive oil,nuts, and fish. Try to have at least 2 servings per week of fatty fish, such as salmon, sardines, mackerel, rainbow trout, and albacore tuna. These contain omega-3 fatty acids, which are good for your heart. Flaxseed is another source of a heart-healthy fat. More on heart-healthy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
--- OUTSIDE RECORDS SUMMARY | 2019-01-31 15:34 | XMS REPORT ---
:1975 Author Organization [facility] Address [address] [place] [address] Dr. Baldwin [address] [place] [address] Care Team Providers Name Role Phone Unavailable Unavailable Unavailable Problems This patient has no known problems. Allergies, Adverse Reactions, Alerts This patient has no known allergies or adverse reactions. Medications This patient has no known medications.
--- OUTSIDE RECORDS SUMMARY | 2019-01-31 15:34 | XMS REPORT | Summary of Care ---
:1975 Author Organization [facility] Address [address] [place] [address] Care Team Providers Name Role Phone Felipe Irene MD Primary Care Provider Reason for Visit Reason Comments New Patient Left Arm/Elbow Pain Encounter Details Date Type Department Care Team Description 10/24/[address] [facility] Orthopaedic FernandezCarlos S, Lateral epicondylitis, Surgery- Joaquin PAC left elbow (Primary [address], [address] [place] [address] [place] [address] [place] [phone] Allergies Active Allergy Reactions Severity Noted Date [...] file Gets together: Not on file Attends jehovah's witness service: Not on file Active member of [...] 08/12/2019 Office Visit Cardiology Josué Chung MD [address] [place] [address] [phone] Health Maintenance Due Date Last Done Comments [...] Phone Address Type / Group [facility] [id number] 2016-[place] [phone] [address] PPO/POS [place] - OUT OF t 7 [id number] [place] [address] [phone] (Work) documented as of this encounter
--- OUTSIDE RECORDS SUMMARY | 2019-01-31 15:34 | XMS REPORT | Summary of Care ---
:1975 Author Organization [facility] [employer] Address [address] [place] [address] Care Team Providers Name Role Phone Felipe Irene MD Primary Care Provider Reason for Visit Reason Comments Refill Request Encounter Details Date Type Department Care Team Description 10/16/2018 Telephone [facility] Felipe Irene MD Refill Request [facility] [address] [facility] [address] [place] [address] [place] [address] Allergies Active Allergy Reactions Severity Noted Date Comments Bee Sting / Venom Anaphylaxis 09/16/2015 Penicillins Rash 02/27/2015 documented as of this encounter (statuses as of 10/16/2018) Medications Medication Sig Dispensed Refills Start Date End Date Status insulin regular inject under 0 Active human (HUMULIN R) the skin. 100 unit/mL Indications: injectionIndication sliding scale s: sliding scale loratadine Take 10 mg by 0 Active (CLARITIN) 10 mg mouth daily. tablet aspirin 81 mg Take 1 tablet 30 tablet 5 10/29/2016 Active chewable tablet by mouth daily. lisinopril 20 mg Take 1 tablet 30 tablet 5 04/19/2017 Active tablet by mouth daily. TRAZODONE 100 mg TAKE ONE 30 tablet 4 10/31/2017 Active tablet TABLET BY MOUTH EVERY NIGHT AT BEDTIME Cholecalciferol, Take by 0 Active Vitamin D3, mouth. (VITAMIN D3) 5,000 unit tablet naproxen sodium 220 Take by 0 Active mg capsule mouth. MULTIVITAMIN 12 IV Inject 0 Active intravenously . GABAPENTIN 300 mg TAKE ONE 90 capsule 4 01/02/2018 Active capsule CAPSULE BY MOUTH THREE TIMES A DAY metoprolol Take 1 tablet 90 tablet 3 08/08/2018 Active succinate XL 25 mg by mouth 24 hr daily. tabletIndications: Dizziness and giddiness atorvastatin 20 mg TAKE ONE 30 tablet 0 08/22/2018 Active tablet TABLET BY MOUTH EVERY EVENING atorvastatin 20 mg TAKE ONE 30 tablet 0 10/16/2018 Active tablet TABLET BY MOUTH EVERY EVENING ATORVASTATIN 20 mg TAKE ONE 30 tablet 0 09/18/2018 10/16/2018 Discontinued tablet TABLET BY MOUTH EVERY EVENING documented as of this encounter (statuses as of 10/16/2018) Active Problems Problem Noted Date Hydradenitis 04/05/2017 Elevated BP 04/10/2016 Vaginal discharge 04/10/2016 Agitation 04/10/2016 Labial lesion 04/10/2016 Type 1 diabetes mellitus with diabetic neuropathy 04/10/2016 Type 1 diabetes mellitus 08/24/2015 Essential hypertension 08/24/2015 Anxiety 08/24/2015 documented as of this encounter (statuses as of 10/16/2018) Immunizations Name Administration Dates Next Due Influenza [...] of this encounter Last Filed Vital Signs Not on filedocumented in this encounter Plan of Treatment Date Type Specialty Care Team Description 08/12/2019 Office Visit Cardiology Josué Chung MD [address] [place] [address] [place] [address] Health Maintenance Due Date Last Done Comments [...] Results Not on filedocumented in this encounter Insurance Payer Benefit Plan Subscriber ID Effective Dates Phone Address Type / Group WCI GENERIC WCI GENERIC [id number] [place] JURADO nt [facility] [id number] 2016-[place] [phone] [address] PPO/POS - OUT OF t 87 [id number] [place] [address] documented as of this encounter
--- OUTSIDE RECORDS SUMMARY | 2019-01-31 15:34 | XMS REPORT | Summary of Care ---
:1975 Author Organization [facility] Address [address] [place] [address] Care Team Providers Name Role Phone Felipe Irene MD Primary Care Provider Reason for Visit Reason Comments Refill Request Encounter Details Date Type Department Care Team Description 11/13/2018 Refill [facility] Family Medicine Felipe Irene MD Refill Request - [place] [address] [facility] [address] [place] [address] [place] [address] Allergies Active Allergy Reactions Severity Noted Date Comments Bee Sting / Venom Anaphylaxis 09/16/2015 Penicillins Rash 02/27/2015 documented as of this encounter (statuses as of 11/13/2018) Medications Medication Sig Dispensed Refills Start Date [...] 20 mg TAKE ONE 30 tablet 0 11/13/2018 Active tablet TABLET BY MOUTH EVERY EVENING atorvastatin 20 mg TAKE ONE 30 tablet 0 10/16/2018 11/13/2018 Discontinued tablet TABLET BY MOUTH EVERY EVENING documented as of this encounter (statuses as of 11/13/2018) Active Problems Problem Noted Date Hydradenitis 04/05/2017 Elevated BP 04/10/2016 Vaginal discharge 04/10/2016 Agitation 04/10/2016 Labial lesion 04/10/2016 Type 1 diabetes mellitus with diabetic neuropathy 04/10/2016 Type 1 diabetes mellitus 08/24/2015 Essential hypertension 08/24/2015 Anxiety 08/24/2015 documented as of this encounter (statuses as of 11/13/2018) Immunizations Name Administration Dates Next Due Influenza [...] 08/12/2019 Office Visit Cardiology Josué Chung MD [address] [place] [address] [place] [address] [phone] Health Maintenance Due Date Last Done Comments [...] Type / Group WCI GENERIC WCI GENERIC [id number] 2016[place] KRAUSEI nt [facility] [id number] 2016-[place] [phone] [address] PPO/POS - OUT OF t 87 [id number] [place] [address] documented as of this encounter
--- OUTSIDE RECORDS SUMMARY | 2019-01-31 15:35 | XMS REPORT | Summary of Care ---
:1975 Author Organization [facility] Address [address] [place] [address] Care Team Providers Name Role Phone Marizol Gonzales [facility] Primary Care Provider Reason for Visit Reason Comments UTI Encounter Details Date Type Department Care Team Description 11/19/2018 Telephone [facility] Marizol Gonzales, UTI [address] [place] [address] [address] [facility] [phone] [place] [address] Allergies Active Allergy Reactions Severity Noted Date Comments Bee Sting / Venom Anaphylaxis 09/16/2015 Penicillins Rash 02/27/2015 documented as of this encounter (statuses as of 11/19/2018) Medications Medication Sig Dispensed Refills Start Date End Date Status insulin regular human inject under 0 Active (HUMULIN R) 100 the skin. unit/mL Indications: injectionIndications: sliding scale sliding scale loratadine (CLARITIN) Take 10 mg by 0 Active 10 mg tablet mouth daily. aspirin 81 mg Take 1 tablet by 30 tablet 5 10/29/2016 Active chewable tablet mouth daily. lisinopril 20 mg Take 1 tablet by 30 tablet 5 04/19/2017 Active tablet mouth daily. TRAZODONE 100 mg TAKE ONE TABLET 30 tablet 4 10/31/2017 Active tablet BY MOUTH EVERY NIGHT AT BEDTIME Cholecalciferol, Take by mouth. 0 Active Vitamin D3, (VITAMIN D3) 5,000 unit tablet naproxen sodium 220 Take by mouth. 0 Active mg capsule MULTIVITAMIN 12 IV Inject 0 Active [...] 11/13/2018 Active tablet BY MOUTH EVERY EVENING Nitrofurantoin&Nit. Take 1 capsule 20 capsule 0 11/19/2018 11/29/2018 Active Macrocryst (MACROBID) by mouth 2 (two) 100 mg times daily for capsuleIndications: 10 days. Urinary tract infection without hematuria, site unspecified documented as of this encounter (statuses as of 11/19/2018) Active Problems Problem Noted Date History of tubal ligation 11/15/2018 Hydradenitis 04/05/2017 Elevated BP 04/10/2016 Vaginal discharge 04/10/2016 Agitation 04/10/2016 Labial lesion 04/10/2016 Type 1 diabetes mellitus with diabetic neuropathy 04/10/2016 Type 1 diabetes mellitus 08/24/2015 Essential hypertension 08/24/2015 Anxiety 08/24/2015 documented as of this encounter (statuses as of 11/19/2018) Immunizations Name Administration Dates Next Due Influenza Virus Vaccine Quad IM 3+ YRS 12/25/2017 Pneumococcal 13 Conjugate, PCV13 (Prevnar 13) 02/16/2017 Td 07/14/2015 Tdap 07/27/2018 documented as of this encounter Social History Tobacco Use Types Packs/Day Years Used Date Current Every Day Smoker Cigarettes 0.1 20 Started: 11/15/1998 Smokeless Tobacco: Never Used Alcohol Use Drinks/Week [...] 08/12/2019 Office Visit Cardiology Josué Chung MD [address] [place] [address] [place] [address] [phone] Health Maintenance Due Date Last Done Comments [...] filedocumented in this encounter Visit Diagnoses Diagnosis Urinary tract infection without hematuria, site unspecified - Primary documented in this encounter Insurance Payer Benefit Plan Subscriber ID Effective Dates Phone Address Type / Group WCI GENERIC WCI GENERIC [id number] [place] KRAUSEI nt [facility] [id number] 2016-[place] [phone] [address] PPO/POS - OUT OF t 87 [id number] [place] [address] documented as of this encounter
--- OUTSIDE RECORDS SUMMARY | 2019-01-31 15:35 | XMS REPORT | Summary of Care ---
:1975 Author Organization [facility] [address] [place] [address] Care Team Providers Name Role Phone Marizol Gonzales GABRIELA Primary Care Provider Reason for Referral Radiology Services (Routine) Status Reason Specialty Diagnoses / Referred By Referred To Procedures Contact Contact New Request Diagnostic Diagnoses Well woman exam Akinsipe, Radiology Procedures BI SCREENING MAMMOGRAM BILATERAL [facility] [address] [place] [address] Reason for Visit Reason Comments Well Woman Exam Encounter Details Date Type Department Care Team Description 11/15/2018 Office Visit [facility]- Marizol Gonzales Well woman exam (Primary Dx); Nghia Polanco GABRIELA History of tubal ligation; [address] Dysuria; [place], [place] UTI symptoms; [address] [place] [address] Essential hypertension; [phone] Type 1 diabetes mellitus with diabetic neuropathy [...] to protect your future. Date Last Reviewed: 02/11/201619998028-3455 [employer]. [address] [place] [address], [place] [address]. All rights reserved. This information is not [...] 4American Academy of Ophthalmology Date Last Reviewed: 01/11/201719994551-3268 [employer]. [address] [place] [address]. All rights reserved. This information is not [...] memory and body movement. Date Last Reviewed: 01/12/201619990149-7913 [employer] [address] [place] [address], [place] [address]. All rights reserved. This information is not intended as a substitute for professional medical care. Always follow your healthcare professional's instructions. Clinical Breast Exam Many health organizations recommend a yearly clinical breast exam. This exam may be done by a filling mixer, family healthcare provider, nurse practitioner, nurse clinical lab assistant, or specially trained nurse. Yearly breast exams [...] Guidelines for having clinical breast exams The [employer] recommends that [...] is best for you. Date Last Reviewed: 10/11/201619998211-0057 [employer] [address] [place] [address]. All rights reserved. This information is not [...] breast self-examination (BSE). These experts include the [employer], the U.S. Preventive Services Task Force, and the [place] [employer] Gynecologists. Some experts [...] they are not cancer. Date Last Reviewed: 10/11/201619995715-9703 [employer]. [address] [place] [address], [place] [address]. All rights reserved. This information is not [...] the food you eat. Date Last Reviewed: 10/11/201619996511-9441 [employer]. [address] [place] [address], [place] [address]. All rights reserved. This information is not [...] cinnamon, pepper, and kym. Date Last Reviewed: 12/11/201619991390-[address] [employer] [place] [address]. All rights reserved. This information is not [...] on medication and being managed by an crew person and pear picker. Pt (denies) current or past physical, sexual [...] file Gets together: Not on file Attends muslim service: Not on file Active member of [...] BCM: BTL 3) LMP: 10/31/2018 4) Last [place]: 05/11/2018 5) Last Pap: 2018 Results: Negative [...] 08/12/2019 Office Visit Cardiology Josué Chung MD [address] [place] [address] [address] [place] [address] [phone] Name Type Priority Associated Diagnoses Date/Time URINE [...] Effective Dates Phone Address Type / Group [facility] [id number] 2016-[place] [phone] [address] PPO/POS [place] - OUT OF t 7 [id number] [place] [address] [phone] (Work) documented as of this encounter
[2019-01-31] MEDS ORDERED: NA CHLORIDE 0.9% 1,000 ML ONE (16:43)
[2019-01-31] MEDS ORDERED: ONDANSETRON 4 MG/2 ML VIAL ONE (16:43)
[2019-01-31 16:59] LABS: Absolute Lymphocytes (CBC) 1.8 K/uL (0.7-4.9); Basophils % 0.8 % (0-1.3); Lymphocytes % 33.9 % (15.3-44.8); MPV 11.5 fL (7.6-11.3)
[2019-01-31 17:04] LABS: Urine Blood 2+ (NEG); Urine Glucose NEGATIVE (NEG); Urine Protein NEGATIVE (NEG)
[2019-01-31 17:04] LABS: Urine Bacteria <20 /HPF (<20); Urine Culture Reflex Order NOT NEEDED; Urine Mucus 1+ /HPF (NONE SEEN)
[2019-01-31 17:12] LABS: Potassium 3.4 mmol/L (3.5-5.1)
--- NOTE | 2019-01-31 17:59 | RAD REPORT ---
EXAM DESCRIPTION: CT - Abdomen Pelvis W Contrast - 01/31/2019 5:36 pm CLINICAL HISTORY: Abdominal pain urinary tract infection COMPARISON: none. TECHNIQUE: Computed axial tomography of the abdomen pelvis was obtained. 100 cc Isovue-300 was admin istered intravenously. Oral contrast was not requested which limits evaluation of bowel. All CT scans are performed using dose optimization technique as appropriate and may include automated exposure control or mA/KV adjustment according to patient size. FINDINGS: Periportal edema is present within the liver. The gallbladder is contracted Spleen, pancreas, and adrenals appear unremarkable. Mild renal cortical thinning There is no evidence of diverticulitis. Periumbilical hernia contains fat IMPRESSION: Periportal edema is a nonspecific finding but can be associated with hepatic inflammatio n Mild renal cortical thinning may be secondary to prior inflammation
[2019-01-31 18:50] LABS: Albumin 3.7 g/dL (3.4-5.0); Bilirubin Direct 0.1 mg/dL (0-0.2); Bilirubin Total 0.4 mg/dL (0.2-1.0); Protein, Total 5.9 g/dL (6.4-8.2)
--- NOTE | 2019-01-31 19:05 | ER ---
Nurse's Notes [facility] Name: Ary Bahena Age: 43 yrs Sex: Female : 1975 Arrival Date: 01/31/2019 Time: 15:32 Bed 28 Private MD: Diagnosis: Flank Pain Presentation: 01/31 15:40 Presenting complaint: Patient states: I have an issue with UTIs and have been on a la1 couple antibiotics, currently on macrobid. Having back pain now. Transition of care: patient was not received from another setting of care. Onset of symptoms was January 31, 2019. Risk Assessment: Do you want to hurt yourself or someone else? Patient reports no desire to harm self or others. Initial Sepsis Screen: Does the patient meet any 2 criteria? No. Patient's initial sepsis screen is negative. Does the patient have a suspected source of infection? No. Patient's initial sepsis screen is negative. Care prior to arrival: None. 15:40 Method Of Arrival: Ambulatory la1 15:40 Acuity: MATTHEW 3 la1 Historical: - Allergies: 15:39 PENICILLINS; la1 - PMHx: 15:39 Diabetes - IDDM; Heart Murmur; PERIPHERAL NEUROPATHY; la1 - Immunization history:: Adult Immunizations up to date. - Social history:: Smoking status: Patient uses tobacco products, smokes one pack cigarettes per day. - Ebola Screening: : No symptoms or risks identified at this time. Screenin:14 Abuse screen: Denies threats or abuse. Denies injuries from another. Nutritional aj1 screening: No deficits noted. Tuberculosis screening: No symptoms or risk factors identified. 19:49 Fall Risk None identified. aj1 Assessment: 16:14 General: Appears in no apparent distress. uncomfortable, Behavior is calm, cooperative, aj1 appropriate for age. Pain: Complains of pain in right low back and right lower quadrant Pain does not radiate. Pain currently is 3 out of 10 on a pain scale. Quality of pain is described as aching. Neuro: Level of Consciousness is awake, alert, obeys commands, Oriented to person, place, time, situation, Speech is normal, Facial symmetry appears normal. Cardiovascular: Patient's skin is warm and dry. Respiratory: Airway is patent Respiratory effort is even, unlabored, Respiratory pattern is regular, symmetrical. GI: No signs and/or symptoms were reported involving the gastrointestinal system. : Reports dark, foul smelling urine Denies burning with urination, urinary frequency. EENT: No signs and/or symptoms were reported regarding the EENT system. Derm: No signs and/or symptoms reported regarding the dermatologic system. Skin is pink, warm \T\ dry. normal. Musculoskeletal: No signs and/or symptoms reported regarding the musculoskeletal system. Circulation, motion, and sensation intact. 17:18 Reassessment: Patient appears in no apparent distress at this time. No changes from aj1 previously documented assessment. Patient and/or family updated on plan of care and expected duration. Pain level reassessed. Patient is alert, oriented x 3, equal unlabored respirations, skin warm/dry/pink. 18:23 Reassessment: Patient appears in no apparent distress at this time. No changes from aj1 previously documented assessment. Patient and/or family updated on plan of care and expected duration. Pain level reassessed. Patient is alert, oriented x 3, equal unlabored respirations, skin warm/dry/pink. 19:30 Reassessment: Patient appears in no apparent distress at this time. No changes from aj1 previously documented assessment. Patient and/or family updated on plan of care and expected duration. Pain level reassessed. Patient is alert, oriented x 3, equal unlabored respirations, skin warm/dry/pink. Vital Signs: 15:39 BP 147 / 81; Pulse 79; Resp 16; Temp 98.1; Pulse Ox 100% on R/A; Weight 65.77 kg; la1 Height 5 ft. 3 in. (160.02 cm); 18:23 BP 137 / 62; Pulse 82; Resp 18; Pulse Ox 97% on R/A; aj1 15:39 Body Mass Index 25.69 (65.77 kg, 160.02 cm) la1 ED Course: 15:32 Patient arrived in ED. as 15:39 Arm band placed on left wrist. la1 15:41 Triage completed. la1 16:10 Laurie Webber, EL is Primary Nurse. aj1 16:12 Harmony Miller FNP-C is PHCP. kb 16:12 Drew Finch MD is Attending Physician. kb 16:14 Patient has correct armband on for positive identification. Bed in low position. Call aj1 light in reach. 16:14 No provider procedures requiring assistance completed. aj1 16:33 Radiology exam delayed due to lab results not completed at this time. pending labs, per prince PHIPPS to change order from Stone Protocol to Abd/Pel W. 16:50 Initial lab(s) drawn, by me, sent to lab. Inserted saline lock: 20 gauge in left aj1 antecubital area, using aseptic technique. Blood collected. 17:36 CT Abd/Pelvis - IV Contrast Only In Process Unspecified. EDMS 19:49 IV discontinued, intact, bleeding controlled, No redness/swelling at site. Pressure aj1 dressing applied. Administered Medications: 16:53 Drug: NS 0.9% 1000 ml Route: IV; Rate: 1000 ml; Site: left antecubital; aj1 19:19 Follow up: IV Status: Completed infusion; IV Intake: 1000ml aj1 16:53 Drug: Zofran 4 mg Route: IVP; Site: left antecubital; aj1 19:20 Follow up: Response: No adverse reaction aj1 Intake: 19:19 IV: 1000ml; Total: 1000ml. aj1 Outcome: 19:05 Discharge ordered by . kb 19:49 Discharged to home ambulatory. aj1 19:49 Condition: good 19:49 Discharge instructions given to patient, Instructed on discharge instructions, follow up and referral plans. Demonstrated understanding of instructions, follow-up care. 19:50 Patient left the ED. aj1 Signatures: Dispatcher [employer] EDHarmony Moss, MOISE PERRYP-Laurie Robles RN RN [email or web address] Ayse Watson Lee, RN RN Mayito Booker Corrections: (The following items were deleted from the chart) 16:34 16:25 Patient moved to OR via wheelchair. prince morrison
--- NOTE | 2019-01-31 19:06 | EDPHYS ---
Physician Documentation [facility] Name: Ary Bahena Age: 43 yrs Sex: Female : 1975 Arrival Date: 01/31/2019 Time: 15:32 Bed 28 Private MD: ED Physician Drew Finch HPI: 01/31 19:05 This 43 yrs old Female presents to ER via Ambulatory with complaints of kb Urinary Problem. 19:11 The patient presents with flank pain, on the right, urinary symptoms, dark urine with kb unusual odor. Onset: The symptoms/episode began/occurred last week. Modifying factors: The symptoms are alleviated by nothing, the symptoms are aggravated by nothing. Associated signs and symptoms: Pertinent positives: nausea. Severity of symptoms: At their worst the symptoms were mild, moderate, in the emergency department the symptoms are unchanged. The patient has not experienced similar symptoms in the past. The patient has been recently seen by a physician:. Pt reports she is on Macrobid for a UTI. States she started having right flank pain and nausea today. Historical: - Allergies: 15:39 PENICILLINS; la1 - PMHx: 15:39 Diabetes - IDDM; Heart Murmur; PERIPHERAL NEUROPATHY; la1 - Immunization history:: Adult Immunizations up to date. - Social history:: Smoking status: Patient uses tobacco products, smokes one pack cigarettes per day. - Ebola Screening: : No symptoms or risks identified at this time. ROS: 18:00 Neck: Negative for injury, pain, and swelling, Cardiovascular: Negative for chest pain, kb palpitations, and edema, Respiratory: Negative for shortness of breath, cough, wheezing, and pleuritic chest pain, Back: Negative for injury and pain, MS/Extremity: Negative for injury and deformity, Skin: Negative for injury, rash, and discoloration, Neuro: Negative for headache, weakness, numbness, tingling, and seizure. 18:00 Constitutional: Positive for malaise. 18:00 Abdomen/GI: Positive for abdominal pain, nausea. 18:00 : Positive for flank pain, foul smelling urine. Exam: 17:57 Constitutional: This is a well developed, well nourished patient who is awake, alert, kb and in no acute distress. Head/Face: Normocephalic, atraumatic. Neck: Trachea midline, no thyromegaly or masses palpated, and no cervical lymphadenopathy. Supple, full range of motion without nuchal rigidity, or vertebral point tenderness. No Meningismus. Chest/axilla: Normal chest wall appearance and motion. Nontender with no deformity. No lesions are appreciated. Cardiovascular: Regular rate and rhythm with a normal S1 and S2. No gallops, murmurs, or rubs. Normal PMI, no JVD. No pulse deficits. Respiratory: Lungs have equal breath sounds bilaterally, clear to auscultation and percussion. No rales, rhonchi or wheezes noted. No increased work of breathing, no retractions or nasal flaring. Skin: Warm, dry with normal turgor. Normal color with no rashes, no lesions, and no evidence of cellulitis. MS/ Extremity: Pulses equal, no cyanosis. Neurovascular intact. Full, normal range of motion. Neuro: Awake and alert, GCS 15, oriented to person, place, time, and situation. Cranial nerves II-XII grossly intact. Motor strength 5/5 in all extremities. Sensory grossly intact. Cerebellar exam normal. Normal gait. 17:57 Abdomen/GI: Inspection: abdomen appears normal, Bowel sounds: normal, in all quadrants, Palpation: soft, in all quadrants, mild abdominal tenderness, in the right lower quadrant. 17:57 Back: CVA tenderness, that is mild, is noted on the right. Vital Signs: 15:39 BP 147 / 81; Pulse 79; Resp 16; Temp 98.1; Pulse Ox 100% on R/A; Weight 65.77 kg; la1 Height 5 ft. 3 in. (160.02 cm); 18:23 BP 137 / 62; Pulse 82; Resp 18; Pulse Ox 97% on R/A; aj1 15:39 Body Mass Index 25.69 (65.77 kg, 160.02 cm) la1 MDM: 16:16 Patient medically screened. kb 17:57 Data reviewed: vital signs, nurses notes. Data interpreted: Pulse oximetry: on room air kb is 100 %. Interpretation: normal. 18:59 Counseling: I had a detailed discussion with the patient and/or guardian regarding: the kb historical points, exam findings, and any diagnostic results supporting the discharge/admit diagnosis, lab results, radiology results, the need for outpatient follow up, a family practitioner, to return to the emergency department if symptoms worsen or persist or if there are any questions or concerns that arise at home. 01/31 16:00 Order name: Urine Dipstick--Ancillary (enter results); Complete Time: 17:07 eb 01/31 16:00 Order name: Urine --Ancillary (enter results); Complete Time: 17:07 eb 01/31 16:21 Order name: Basic Metabolic Panel; Complete Time: 17:20 kb 01/31 16:21 Order name: CBC with Diff; Complete Time: 17:07 kb 01/31 16:21 Order name: Urine Microscopic Only; Complete Time: 17:07 kb 01/31 18:29 Order name: Lipase; Complete Time: 18:58 kb 01/31 15:42 Order name: Urine Dipstick-Ancillary (obtain specimen); Complete Time: 16:10 kb 01/31 16:21 Order name: IV Saline Lock; Complete Time: 16:53 kb 01/31 16:21 Order name: Labs collected and sent; Complete Time: 16:53 kb 01/31 16:28 Order name: CT Abd/Pelvis - IV Contrast Only; Complete Time: 18:11 kb 01/31 18:29 Order name: LFT's; Complete Time: 18:58 kb Administered Medications: 16:53 Drug: NS 0.9% 1000 ml Route: IV; Rate: 1000 ml; Site: left antecubital; aj1 19:19 Follow up: IV Status: Completed infusion; IV Intake: 1000ml aj 16:53 Drug: Zofran 4 mg Route: IVP; Site: left antecubital; aj1 19:20 Follow up: Response: No adverse reaction aj1 Disposition: 01/31/19 19:05 Discharged to Home. Impression: Flank Pain. - Condition is Stable. - Discharge Instructions: Flank Pain, [id number]. - Medication Reconciliation Form, Thank You Letter, Antibiotic Education, Prescription Opioid Use form. - Follow up: Emergency Department; When: As needed; Reason: Worsening of condition. Follow up: Private Physician; When: 2 - 3 days; Reason: Recheck today's complaints, Continuance of care, Re-evaluation by your physician. Signatures: Dispatcher [employer] Harmony Lynn, GLUE COOK-C GLUE COOK-Ckb Laurie Webber RN RN aj1 Luiz Partida RN RN la1 Corrections: (The following items were deleted from the chart) 16:32 16:23 Stone Protocol+CT.RAD.BRZ ordered. [facility] EDMS 19:50 19:05 01/31/2019 19:05 Discharged to Home. Impression: Flank Pain. Condition is Stable. aj1 Forms are Medication Reconciliation Form, Thank You Letter, Antibiotic Education, Prescription Opioid Use. Follow up: Emergency Department; When: As needed; Reason: Worsening of condition. Follow up: Private Physician; When: 2 - 3 days; Reason: Recheck today's complaints, Continuance of care, Re-evaluation by your physician. kb
[2019-01-31 20:35] VITALS: TEMP 98.1
[2019-01-31 20:36] VITALS: BP 137/62; O2SAT 97
== END 2019-01-31 19:50 | disposition home or self-care (01) ==
LOC: ER 15:31
DX: R10.9 Unspecified abdominal pain (principal); F17.210 Nicotine dependence, cigarettes, uncomplicated; E11.42 Type 2 diabetes mellitus with diabetic polyneuropathy; Z88.0 Allergy status to penicillin
CPT/HCPCS: 96361; 85025; 80048; 36415; 81025; 80076; 83690; 74177; 96374; 99284; Q9967; J7030; J2405; 81003; 81015